=== PATIENT | male | born 1955 | race Hispanic/Latino ===

== ENCOUNTER 2017-04-07 16:52 | Emergency (ER) | payer OTHER, BC ==
[~2017-04-07] VITALS: Ht 167.6 cm; Wt 100.0 kg
[~2017-04-07 16:52] MED LIST: BACTRIM DS1 TAB PO; CEPHALEXIN500 MG OR; LORTAB 5 OR
[2017-04-07] MEDS ORDERED: BENADRYL 50MG C50 MG PO (17:25)
[2017-04-07] MEDS ORDERED: CIMETIDINE400 M1 PO (17:25)
[2017-04-07] MEDS ORDERED: PREDNISONE50 MG PO (17:25)
[2017-04-07] MEDS ORDERED: EPIPEN 2-P0.3 MG/0.3 IM (17:25)
[2017-04-07] MEDS ORDERED: LIPITOR40 M1 PO (17:51)
[2017-04-07] MEDS ORDERED: ASPIRIN 81 LOW81 MG (17:52)
[2017-04-07] MEDS ORDERED: RANITIDINE150 M1 PO (17:52)
[2017-04-07] MEDS ORDERED: LISINOPRIL30 MG PO (17:52)
[2017-04-07 18:11] VITALS: BP 103/53
== END 2017-04-07 18:20 | disposition home or self-care (01) | DRG 916 ==
LOC: ED 16:52
DX: T78.3XXA Angioneurotic edema, initial encounter (principal); T63.441A Toxic effect of venom of bees, accidental (unintentional), initial encounter; Y92.009 Unspecified place in unspecified non-institutional (private) residence as the place of occurrence of the external cause

== ENCOUNTER 2018-04-07 08:33 | Inpatient (IN) | payer BC ==
[~2018-04-07] VITALS: Ht 175.3 cm; Wt 90.0 kg
[~2018-04-07 08:33] MED LIST changes: +ASPIRIN 81 LOW81 MG PO; +BENADRYL 50MG C50 MG PO; +CIMETIDINE400 M1 PO; +EPIPEN 2-P0.3 MG/0.3 IM; +LIPITOR40 M1 PO; +LISINOPRIL30 MG PO; +PREDNISONE50 MG PO; +RANITIDINE150 M1 PO
[2018-04-07 09:18] LABS: HEMATOCRIT 38.1 % (39.0-50.0); HEMOGLOBIN 13.2 g/dl (14.0-18.0); IMMATURE GRANULOCYTES 0.8 % (0.0-1.0); MEAN CELL VOLUME 89.6 fL CALC (80.0-100.0); MEAN CORPUSCULAR HGB 31.1 pG CALC (26.0-32.0); MEAN CORPUSCULAR HGB CONC 34.6 g/L CALC (32.0-36.0); NEUT# 4.05 thou/uL (1.82-7.42); RED BLOOD COUNT 4.25 mill/uL (4.70-6.10); RED CELL DISTRI WIDTH 12.8 % (11.5-15.5)
[2018-04-07 10:12] LABS: ALBUMIN 4.6 g/dL (3.2-5.0); ALKALINE PHOSPHATASE 99 u/l (38-126); BILIRUBIN, TOTAL 0.6 mg/dL (0.0-1.4); BUN 47 mg/dL (9-20); CARBON DIOXIDE 19 mmol/l (22-30); CHLORIDE 99 mmol/l (95-108); SGOT/AST 31 u/l (17-59); SGPT/ALT 59 u/l (21-72); TOTAL PROTEIN 8.5 g/dL (6.3-8.2)
[2018-04-07 10:14] LABS: ANION GAP 18 (6-22 (CALC)); BUN/CREATININE RATIO 17 (12-20 (CALC)); CREATININE 2.8 mg/dL (0.7-1.3); GFR 23 ML/MIN (>=60 (CALC)); GFR FOR AFR.AMER. 28 ML/MIN (>=60 (CALC)); POTASSIUM 4.6 mmol/l (3.5-5.1); SODIUM 131 mmol/l (137-146)
[2018-04-07] MEDS ORDERED: COQ-1030 M1 PO (10:17)
[2018-04-07] MEDS ORDERED: ZOCOR20 M1 PO (10:19)
[2018-04-07] MEDS ORDERED: VITAMIN B 12250 MCG PO (10:20)
[2018-04-07] MEDS ORDERED: ALEVE220 M1 PO (10:20)
[2018-04-07] MEDS ORDERED: CRESTOR10 MG PO (13:04)
[2018-04-07 13:23] VITALS: BP 133/77
[2018-04-07 14:01] LABS: URINE BILIRUBIN - DIPSTICK NEGATIVE (NEGATIVE); URINE BLOOD DIPSTICK TRACE-LYSED (NEGATIVE); URINE COLOR YELLOW; URINE GLUCOSE - DIPSTICK NEGATIVE (NEGATIVE); URINE KETONE NEGATIVE (NEGATIVE); URINE LEUK ESTERASE NEGATIVE (Negative); URINE NITRITE - DIPSTICK NEGATIVE (Negative); URINE PH 5.5 (4.5-8.0); URINE PROTEIN - DIPSTICK NEGATIVE (NEG-TRACE); URINE SPECIFIC GRAVITY <=1.005; URINE UROBILINOGEN - DIPSTICK 0.2 E.U./dL (0.2)
[2018-04-07 14:02] LABS: URINE CLARITY CLEAR
[2018-04-07 15:33] VITALS: BP 113/61
[2018-04-07 19:00] VITALS: BP 108/60
[2018-04-08 05:02] VITALS: BP 107/59
[2018-04-08 07:19] LABS: ALBUMIN 3.8 g/dL (3.2-5.0); BUN 36 mg/dL (9-20); CARBON DIOXIDE 21 mmol/l (22-30); CHLORIDE 109 mmol/l (95-108)
[2018-04-08 07:27] VITALS: BP 120/74
[2018-04-08 07:27] LABS: GFR 56 ML/MIN (>=60 (CALC))
[2018-04-08 07:28] LABS: CREATININE 1.3 mg/dL (0.7-1.3); GFR FOR AFR.AMER. > 60 ML/MIN (>=60 (CALC)); POTASSIUM 5.2 mmol/l (3.5-5.1); SODIUM 140 mmol/l (137-146)
[2018-04-08 08:58] LABS: CHOLESTEROL HDL RATIO 3.6 (<4.4 (CALC))
== END 2018-04-08 13:19 | disposition home or self-care (01) | DRG 683 ==
LOC: ED 08:33 → ED-I 11:16 → ED 12:09 → MS2 12:10
PROVIDERS: Emergency Medicine; Internal Medicine Nephrology; Nurse Practitioner Family; ADMIT Internal Medicine; ATTEND Internal Medicine
DX: N17.9 Acute kidney failure, unspecified (principal); E87.1 Hypo-osmolality and hyponatremia; E87.2 Acidosis; E86.0 Dehydration; I10 Essential (primary) hypertension; K21.9 Gastro-esophageal reflux disease without esophagitis; E78.5 Hyperlipidemia, unspecified; F10.20 Alcohol dependence, uncomplicated; F17.210 Nicotine dependence, cigarettes, uncomplicated; T46.4X5A Adverse effect of angiotensin-converting-enzyme inhibitors, initial encounter; T39.315A Adverse effect of propionic acid derivatives, initial encounter; D64.9 Anemia, unspecified; S16.1XXA Strain of muscle, fascia and tendon at neck level, initial encounter; S46.912A Strain of unspecified muscle, fascia and tendon at shoulder and upper arm level, left arm, initial encounter; X50.9XXA Other and unspecified overexertion or strenuous movements or postures, initial encounter; Y93.89 Activity, other specified; Y92.74 Orchard as the place of occurrence of the external cause; Y99.0 Civilian activity done for income or pay

== ENCOUNTER 2018-05-29 14:35 | Observation (INO) | payer BC ==
[~2018-05-29] VITALS: Ht 175.3 cm; Wt 64.4 kg
[~2018-05-29 14:35] MED LIST changes: +ALEVE220 M1 PO; +COQ-1030 M1 PO; +CRESTOR10 MG PO; +VITAMIN B 12250 MCG PO; +ZOCOR20 M1 PO
[2018-05-29 15:11] LABS: HEMATOCRIT 38.7 % (39.0-50.0); HEMOGLOBIN 13.5 g/dl (14.0-18.0); IMMATURE GRANULOCYTES 0.7 % (0.0-5.0); MEAN CORPUSCULAR HGB CONC 34.9 g/L CALC (32.0-36.0); NEUT# 4.16 thou/uL (1.82-7.42); RED BLOOD COUNT 4.35 mill/uL (4.70-6.10); RED CELL DISTRI WIDTH 12.8 % (11.5-15.5)
[2018-05-29 15:21] LABS: ANION GAP 25 (6-22 (CALC)); BUN 62 mg/dL (9-20); BUN/CREATININE RATIO 19 (12-20 (CALC)); CARBON DIOXIDE 15 mmol/l (22-30); CHLORIDE 104 mmol/l (95-108); CPK 140 u/l (52-200); ETHYL ALCOHOL 61 mg/dl (0-30); GFR 19 ML/MIN (>=60 (CALC)); GFR FOR AFR.AMER. 23 ML/MIN (>=60 (CALC)); POTASSIUM 4.5 mmol/l (3.5-5.1); SODIUM 140 mmol/l (137-146)
[2018-05-29 15:23] LABS: CREATININE 3.3 mg/dL (0.7-1.3)
[2018-05-29 17:17] LABS: URINE BILIRUBIN - DIPSTICK NEGATIVE (NEGATIVE); URINE BLOOD DIPSTICK TRACE-LYSED (NEGATIVE); URINE COLOR YELLOW; URINE GLUCOSE - DIPSTICK NEGATIVE (NEGATIVE); URINE KETONE NEGATIVE (NEGATIVE); URINE LEUK ESTERASE NEGATIVE (NEGATIVE); URINE NITRITE - DIPSTICK NEGATIVE (Negative); URINE PH 5.5 (4.5-8.0); URINE PROTEIN - DIPSTICK NEGATIVE (NEG-TRACE); URINE SPECIFIC GRAVITY <=1.005; URINE UROBILINOGEN - DIPSTICK 0.2 E.U./dL (0.2)
[2018-05-29 17:18] LABS: URINE CLARITY CLEAR
[2018-05-29 23:00] VITALS: BP 130/73
[2018-05-30 05:10] VITALS: BP 111/62
[2018-05-30 05:54] LABS: POTASSIUM 5.1 mmol/l (3.5-5.1)
[2018-05-30 05:59] LABS: CREATININE 1.5 mg/dL (0.7-1.3)
[2018-05-30 09:30] VITALS: BP 114/73
[2018-05-30 11:26] VITALS: BP 103/62
[2018-05-30 11:28] VITALS: BP 118/72; BP 135/76
[2018-05-30 15:35] VITALS: BP 120/61
[2018-05-30 19:34] VITALS: BP 117/69
[2018-05-31 03:55] VITALS: BP 131/71
[2018-05-31 05:12] LABS: HEMATOCRIT 35.1 % (39.0-50.0); HEMOGLOBIN 11.7 g/dl (14.0-18.0); MEAN CELL VOLUME 92.4 fL CALC (80.0-100.0); MEAN CORPUSCULAR HGB 30.8 pG CALC (26.0-32.0); MEAN CORPUSCULAR HGB CONC 33.3 g/L CALC (32.0-36.0); RED BLOOD COUNT 3.8 mill/uL (4.70-6.10)
[2018-05-31 05:45] LABS: ALBUMIN 3.5 g/dL (3.2-5.0); ALKALINE PHOSPHATASE 67 u/l (38-126); ANION GAP 15 (6-22 (CALC)); BILIRUBIN, TOTAL 0.3 mg/dL (0.0-1.4); BUN 21 mg/dL (9-20); BUN/CREATININE RATIO 20 (12-20 (CALC)); CARBON DIOXIDE 21 mmol/l (22-30); CHLORIDE 111 mmol/l (95-108); GFR > 60 ML/MIN (>=60 (CALC)); GFR FOR AFR.AMER. > 60 ML/MIN (>=60 (CALC)); POTASSIUM 4.7 mmol/l (3.5-5.1); SGOT/AST 20 u/l (17-59); SGPT/ALT 28 u/l (21-72); SODIUM 142 mmol/l (137-146); TOTAL PROTEIN 6.4 g/dL (6.3-8.2)
[2018-05-31 08:43] VITALS: BP 126/77
== END 2018-05-31 11:14 | disposition home or self-care (01) | DRG 684 ==
LOC: ED 14:35 → ED-I 22:27 → ED 22:40 → MS2 22:41
PROVIDERS: Family Medicine; Internal Medicine; ADMIT General Practice; ATTEND General Practice
DX: N17.9 Acute kidney failure, unspecified (principal); E86.0 Dehydration; I10 Essential (primary) hypertension; K21.9 Gastro-esophageal reflux disease without esophagitis; E78.5 Hyperlipidemia, unspecified; F17.210 Nicotine dependence, cigarettes, uncomplicated; X30.XXXA Exposure to excessive natural heat, initial encounter; Y93.89 Activity, other specified; Z72.89 Other problems related to lifestyle
CPT/HCPCS: G0378; J1650

== ENCOUNTER 2018-10-27 16:00 | Outpatient (RCR) | payer OTHER | END 2018-12-08 10:29 | disposition home or self-care (01) | DRG 950 | LOC: PT 16:00 | PROVIDERS: ATTEND Physician Assistant Medical | DX: S39.92XD Unspecified injury of lower back, subsequent encounter (principal) ==

== ENCOUNTER 2019-11-25 23:48 | Observation (INO) | payer BC ==
[~2019-11-25] VITALS: Ht 165.1 cm; Wt 85.2 kg
[2019-11-26 00:23] LABS: IMMATURE GRANULOCYTES 0.4 % (0.0-5.0); MEAN CELL VOLUME 87.6 fL CALC (80.0-100.0); MEAN CORPUSCULAR HGB 30.2 pG CALC (26.0-32.0); MEAN CORPUSCULAR HGB CONC 34.5 g/L CALC (32.0-36.0); NEUT# 2.82 thou/uL (1.82-7.42); RED BLOOD COUNT 5.07 mill/uL (4.70-6.10); RED CELL DISTRI WIDTH 12.9 % (11.5-15.5)
[2019-11-26 00:28] LABS: HEMATOCRIT 44.4 % (39.0-50.0); HEMOGLOBIN 15.3 g/dl (14.0-18.0)
[2019-11-26 00:39] LABS: AMYLASE 78 u/l (30-110); BUN 13 mg/dL (8-23); BUN/CREATININE RATIO 13 (12-20 (CALC)); CARBON DIOXIDE 20 mmol/l (22-30); CHLORIDE 102 mmol/l (95-108); GFR > 60 ML/MIN (>=60 (CALC)); GFR FOR AFR.AMER. > 60 ML/MIN (>=60 (CALC)); LIPASE 129 u/l (23-300); SODIUM 136 mmol/l (137-146)
[2019-11-26 00:41] LABS: ALBUMIN 4.6 g/dL (3.2-5.0); ALKALINE PHOSPHATASE 113 u/l (38-126); ANION GAP 18 (6-22 (CALC)); BILIRUBIN, TOTAL 0.5 mg/dL (0.0-1.4); POTASSIUM 3.7 mmol/l (3.5-5.1); SGOT/AST 45 u/l (19-48); TOTAL PROTEIN 8.6 g/dL (6.3-8.2)
[2019-11-26 00:50] LABS: ACT PARTIAL THROMBO TIME 28.9 SECONDS (20.0-32.5); D-DIMER 0.48 mg/L (0.19-0.60)
[2019-11-26 00:51] LABS: MYOGLOBIN 19 ng/mL (0 - 121)
[2019-11-26] MEDS ORDERED: LISINOPRIL40 MG PO (01:48)
[2019-11-26] MEDS ORDERED: AMLODIPINE BESY10 MG PO (01:48)
[2019-11-26] MEDS ORDERED: GABAPENTIN300 M2 PO (01:49)
[2019-11-26] MEDS ORDERED: FAMOTIDINE20 M1 PO (01:49)
[2019-11-26 02:15] VITALS: BP 150/80
[2019-11-26 03:42] VITALS: BP 134/74
[2019-11-26 06:13] LABS: CHOLESTEROL HDL RATIO 4.8 (<4.4 (CALC))
[2019-11-26 10:47] VITALS: BP 138/75
[2019-11-26] MEDS ORDERED: ISOSORB MONO30 MG PO (11:14)
[2019-11-26] MEDS ORDERED: OMEPRAZOLE20 MG PO (11:14)
[2019-11-26 13:13] VITALS: BP 128/73
== END 2019-11-26 14:07 | disposition home or self-care (01) | DRG 313 ==
LOC: ED 23:48 → ED-I 11-26 01:30 → ED 11-26 01:35 → MS2 11-26 01:36
PROVIDERS: Family Medicine; ADMIT Internal Medicine; ATTEND Internal Medicine
DX: R07.9 Chest pain, unspecified (principal); I10 Essential (primary) hypertension; E78.5 Hyperlipidemia, unspecified; K21.9 Gastro-esophageal reflux disease without esophagitis; F17.210 Nicotine dependence, cigarettes, uncomplicated; Z72.89 Other problems related to lifestyle
CPT/HCPCS: G0378; J1650